=== PATIENT | male | born 1950 | race Caucasian/White ===

== ENCOUNTER 2016-06-08 | Outpatient (CLI) | payer MEDICARE, OTHER | END 2016-06-08 13:14 | disposition home or self-care (01) | DX: J45.998 Other asthma (principal) ==

== ENCOUNTER 2016-06-21 08:10 | Outpatient (CLI) | payer MEDICARE, OTHER | END 2016-06-21 08:11 | disposition home or self-care (01) | DX: Z00.00 Encounter for general adult medical examination without abnormal findings (principal); Z12.5 Encounter for screening for malignant neoplasm of prostate | CPT/HCPCS: 36415; 80061; G0103 ==

== ENCOUNTER 2016-08-13 12:00 | Day surgery (SDC) | payer MEDICARE, OTHER ==
[2016-08-13] MEDS ORDERED: LACTATED RINGERS 1,000 ML IV ONE (12:27)
[2016-08-13] MEDS ORDERED: MIDAZOLAM 2 MG/2 ML VIAL IVP ONE (15:00)
[2016-08-13] MEDS ORDERED: fentaNYL 250 MCG/5 ML VIAL IVP ONE (15:00)
== END 2016-08-13 12:01 | disposition home or self-care (01) ==
PROC: 0DJD8ZZ Inspection of Lower Intestinal Tract, Via Natural or Artificial Opening Endoscopic (ICD-10-PCS; principal; 2016-08-13 13:45)
DX: Z12.11 Encounter for screening for malignant neoplasm of colon (principal); K64.8 Other hemorrhoids; Z86.010 Personal history of colon polyps; Z87.891 Personal history of nicotine dependence; Z80.42 Family history of malignant neoplasm of prostate
CPT/HCPCS: G0105; J3010; J7120

== ENCOUNTER 2016-12-24 10:37 | Outpatient (CLI) | payer MEDICARE, OTHER | END 2016-12-24 10:38 | disposition home or self-care (01) | LOC: LAB.WCP 10:37 | PROVIDERS: ATTEND Family Medicine | DX: Z00.00 Encounter for general adult medical examination without abnormal findings (principal) | CPT/HCPCS: 36415; 86803 ==

== ENCOUNTER 2020-03-07 17:29 | Outpatient (CLI) | payer MEDICARE, OTHER | END 2020-03-07 17:30 | disposition home or self-care (01) | LOC: COV 17:29 | PROVIDERS: ATTEND Family Medicine | DX: Z20.828 Contact with and (suspected) exposure to other viral communicable diseases (principal) ==

== ENCOUNTER 2023-02-06 16:53 | Emergency (ER) | payer MEDICARE, OTHER ==
[2023-02-06 17:14] VITALS: BP 143/71; O2SAT 98
[2023-02-06 17:53] LABS: BASOPHILS % (AUTO) 0.2 %; EOSINOPHILS # (AUTO) 0.1 10^3/uL (0.0-0.7); EOSINOPHILS % (AUTO) 0.9 %; HCT - HEMATOCRIT 44.9 % (42.0-52.0); HGB - HEMOGLOBIN 15.3 g/dL (14.0-18.0); LYMPHOCYTES # (AUTO) 1.6 10^3/uL (1.5-3.5); LYMPHOCYTES % (AUTO) 16.8 %; MEAN CORPUSCULAR HEMOGLOBIN 31.5 pg (27.0-31.0); MEAN CORPUSCULAR HGB CONC 34.1 g/dL (32.0-36.0); MEAN CORPUSCULAR VOLUME 92.6 fL (80.0-94.0); MEAN PLATELET VOLUME 8.6 fL (7.4-11.4); MONOCYTES # (AUTO) 0.5 10^3/uL (0.0-1.0); MONOCYTES % (AUTO) 5.5 %; NEUTROPHILS # (AUTO) 7.4 10^3/uL (1.5-6.6); NEUTROPHILS % (AUTO) 76.4 %; PLT - PLATELET COUNT 208 10^3/uL (130-450); RED BLOOD COUNT 4.85 10^6/uL (4.70-6.10); RED CELL DISTRIBUTION WIDTH 11.8 % (12.0-15.0); WHITE BLOOD COUNT 9.7 x10^3/uL (4.8-10.8)
[2023-02-06 18:11] LABS: ALBUMIN 4.4 g/dL (3.2-5.5); ALBUMIN/GLOBULIN RATIO 1.8 (1.0-2.2); BILIRUBIN,TOTAL 1.3 mg/dL (0.2-1.0); POTASSIUM 4.5 mmol/L (3.5-4.5); TOTAL PROTEIN 6.8 g/dL (6.4-8.9)
[2023-02-06] MEDS ORDERED: LIDOCAINE-MPF 2% 6 ML in SODIUM CHLORIDE 0.9% 50 ML IV STA (19:02)
[2023-02-06] MEDS ORDERED: KETOROLAC 30 MG/ML VIAL IVP STA (19:02)
--- NOTE | 2023-02-06 19:05 | ED Physician Documentation ---
PD HPI ABD PAIN - Stated complaint Stated Complaint: ABD PX - Chief complaint Chief Complaint: Abd Pain - History obtained from History obtained from: Patient, Family - History of Present Illness Timing - onset: Today Timing - duration: Days (1) Pain level max: 8 Pain level now: 8 Quality: Aching, Sharp, Pain Location: Other (Left flank) Associated symptoms: No: Fever, Nausea, Vomiting, Hematemesis, Diarrhea, Constipation, Melena, Hematochezia, Dysuria, Hematuria - Additional information Additional information: Patient is a 72-year-old male who presents to the emergency department with left flank pain. Onset today. History of kidney stones and states that this feels similar. Has never had to have a stone removed. No history of stents. No nausea or vomiting. No diarrhea. No constipation. No blood in the urine. No dysuria. Review of Systems Constitutional: denies: Fever, Chills Nose: denies: Rhinorrhea / runny nose, Congestion Respiratory: denies: Cough GI: denies: Nausea, Vomiting, Diarrhea Skin: denies: Rash Musculoskeletal: denies: Neck pain, Back pain Neurologic: denies: Headache PD PAST MEDICAL HISTORY - Past Medical History Past Medical History: Yes Cardiovascular: None Respiratory: None Endocrine/Autoimmune: None GI: None : None, Kidney stones HEENT: None Psych: None Musculoskeletal: None, Other Derm: None - Past Surgical History Past Surgical History: No - Present Medications Home Medications: Ambulatory Orders Medication Instructions Recorded Confirmed Loratadine [Claritin] 10 mg PO ONCE 10/04/14 08/13/16 Aspirin 81 mg PO DAILY 08/10/16 08/10/16 Ibuprofen [Motrin] 800 mg PO Q8H PRN #30 tablet 02/06/23 Ondansetron Odt [Zofran] 4 mg TL Q6H PRN #10 tablet 02/06/23 Oxycodone HCl/Acetaminophen 1 - 2 each PO Q6H PRN #14 tablet 02/06/23 [Percocet 5-325 mg Tablet] MDD 6 tabs Tamsulosin [Flomax] 0.4 mg PO DAILY #14 cap 02/06/23 - Allergies Allergies/Adverse Reactions: Allergies Allergy/AdvReac Type Severity Reaction Status Date / Time No Known Drug Allergies Allergy Verified 02/06/23 17:13 - Social History Does the pt smoke?: No Smoking Status: Current some day smoker Does the pt drink ETOH?: Yes Does the pt have substance abuse?: Yes - Immunizations Immunizations are current?: Yes - POLST Patient has POLST: No PD ED PE NORMAL - Vitals Vital signs reviewed: Yes - General General: Alert and oriented X 3, No acute distress - HEENT HEENT: Moist mucous membranes - Neck Neck: Supple, no meningeal sign - Cardiac Cardiac: RRR, Strong equal pulses - Respiratory Respiratory: No respiratory distress, Clear bilaterally - Abdomen Abdomen: Soft, Non distended, Other (Mild tender to palpation left lower quadrant. No peritoneal signs.) - Back Back: Other (Mild left CVA tenderness) - Derm Derm: Warm and dry - Neuro Neuro: Alert and oriented X 3 Results - Vitals Vitals: Vital Signs - 24 hr 02/06/23 17:05 Temperature 37.1 C Heart Rate 59 L Respiratory 17 Rate Blood Pressure 143/71 H O2 Saturation 98 Oxygen O2 Source Room air - Labs Labs: Laboratory Tests 02/06/23 02/06/23 02/06/23 17:00 17:47 17:47 WBC 9.7 RBC 4.85 Hgb 15.3 Hct 44.9 MCV 92.6 MCH 31.5 H MCHC 34.1 RDW 11.8 L Plt Count 208 MPV 8.6 Neut # (Auto) 7.4 H Lymph # (Auto) 1.6 [place] # (Auto) 0.5 Eos # (Auto) 0.1 Baso # (Auto) 0.0 Absolute Nucleated RBC 0.00 Nucleated RBC % 0.0 Sodium 136 Potassium 4.5 Chloride 101 Carbon Dioxide 28 Anion Gap 7.0 BUN 13 Creatinine 1.0 Estimated GFR (MDRD) 73 L Glucose 107 H Calcium 10.0 Total Bilirubin 1.3 H AST 20 ALT 12 Alkaline Phosphatase 64 Total Protein 6.8 Albumin 4.4 Globulin 2.4 Albumin/Globulin Ratio 1.8 Lipase 37 Urine Color YELLOW Urine Clarity HAZY Urine pH 6.0 Ur Specific [place] 1.025 Urine Protein 100 H Urine Glucose (UA) NEGATIVE Urine Ketones 15 H Urine Occult Blood LARGE H Urine Nitrite NEGATIVE Urine Bilirubin NEGATIVE Urine Urobilinogen 0.2 (NORMAL) Ur Leukocyte Esterase NEGATIVE Urine RBC TNTC H Urine WBC 0-3 Ur Squamous Epith Cells RARE Squamous Urine Bacteria None Seen Ur Microscopic Review INDICATED Urine Culture Comments NOT INDICATED - Rads (name of study) CT abdomen pelvis Relevant Findings:: Final report received, See rad report PD Medical Decision Making - ED course Complexity details: reviewed results, re-evaluated patient, considered differential, d/w patient ED course: 72-year-old male presents to the emergency department left flank pain, consistent with ureteral stone. Given IV Toradol and IV lidocaine. Pain resolved. CT scan does show a 7 mm proximal ureteral stone. No evidence of infection. No vomiting. Will prescribe pain medication for home. We will have him follow-up with urology for further care. No indication for admission at this time. No evidence of sepsis. Patient counseled regarding signs and symptoms for which I believe and urgent re-evaluation would be necessary. Patient with good understanding of and agreement to plan and is comfortable going home at this time This document was made in part using voice recognition software. While efforts are made to proofread this document, sound alike and grammatical errors may occur. Departure - Departure Disposition: 01 Home, Self Care Clinical Impression: Renal colic on left side Condition: Good Instructions: ED Stone Renal W Colic Follow-Up: DERICK SIMON ARNP [Primary Care Provider] - As Needed Bobby Mendoza MD [Provider Admit Priv/Credential] - Within 1 week Prescriptions: Tamsulosin [Flomax] 0.4 mg PO DAILY #14 cap Ibuprofen [Motrin] 800 mg PO Q8H PRN #30 tablet PRN Reason: PAIN &/OR FEVER Oxycodone HCl/Acetaminophen [Percocet 5-325 mg Tablet] 1 - 2 each PO Q6H PRN #14 tablet MDD 6 tabs PRN Reason: pain Ondansetron Odt [Zofran] 4 mg TL Q6H PRN #10 tablet PRN Reason: Nausea / Vomiting Comments: Your prescriptions were sent to [facility] in [place]. You have a 7 mm left ureteral stone, this is in the proximal ureter. This is unlikely to pass on its own. Please contact Dr. Mendoza's office in the morning for a follow-up appointment. Please return if you worsen including uncontrolled pain, fevers or other new or worrisome symptoms. I am prescribing a short course of narcotic pain medication for you. These are potentially dangerous and addictive medications that should be used carefully. These medications may constipate you. Take an uery-yxl-iatqbvf stool softener (docusate) twice daily with plenty of water while taking these medications. If you go 24 hours without a bowel movement, take pymv-opf-pktzxlq miralax, per package instructions. Do not drink or drive while taking these medications. If you received narcotic or sedating medications while in the emergency department, do not drive for 24 hours. Store this medication in a safe, secure place and out of reach of children. It is a violation of federal law to give or sell this medication to another person or to use in a manner other than prescribed. The ED will not refill narcotic prescriptions, including prescriptions lost or stolen. To dispose of unwanted medications: 1. [facility] at [address] in [place] has a medication drop box. They accept prescription medications (in pill form) Saturday through Saturday 9:00 a.m. to 5:00 p.m. 2. The [facility] [place] [employer] accepts prescription medications (in pill form only) for disposal year round. Call for more information. 3. Contact the [facility] for the next COUNTS INCLUDE 234 BEDS AT THE [facility] sponsored prescription drug collection event. , [phone], or [phone]; PROCEDURE: ABDOMEN/PELVIS WO INDICATIONS: L flank pain, h/o renal stones TECHNIQUE: A CT scan of the abdomen and pelvis was performed without the use of intravenous contrast. Images were recorded and evaluated at appropriate window settings. Reformats: coronal and sagittal. For radiation dose reduction, the following was used: automated exposure control, adjustment of mA and/or kV according to patient size. COMPARISON: CT abdomen pelvis 10/11/2021 FINDINGS: Image quality: Excellent. Lung bases and heart: Unremarkable. Liver: Unchanged hepatic low-attenuation foci most suggestive of cysts. Gallbladder and biliary tree: Unremarkable Spleen: No splenomegaly. Pancreas: No pancreatic ductal dilation. Adrenals: No adrenal nodule. Kidneys and ureters: There is prominent left perinephric stranding as well as mild to moderate hydronephrosis. Punctate superior pole calcification is present. In addition, 5 mm inferior pole calcification, Hounsfield units 848 is present. There is a proximal ureteral calcification immediately distal to the ureteropelvic junction measuring 7 mm. Periureteral stranding is present. Right kidney is unremarkable. Bowel and peritoneum: No bowel distension. No pathologic free fluid. Scattered diverticula are present without inflammatory change. Lymph nodes: No central or retroperitoneal adenopathy. Vessels: No infrarenal aortic aneurysm. PELVIS Reproductive organs: Unremarkable. Bladder: No wall thickness, accounting for underdistention. Pelvic lymph nodes: No pelvic adenopathy by size criteria. Bones: No aggressive osseous abnormality. Other: No significant ventral or inguinal hernia. IMPRESSION: Left hydronephrosis and proximal hydroureter secondary to 7 mm proximal ureteral stone. Nonobstructing left renal calculi. Diverticulosis. Forms: PCP List Discharge Date/Time: 02/06/23 20:47
[2023-02-06 19:15] LABS: BILIRUBIN,URINE NEGATIVE (NEGATIVE); GLUCOSE, URINE (UA) NEGATIVE (NEGATIVE); KETONES,URINE (UA) 15 mg/dL (NEGATIVE); LEUKOCYTE ESTERASE, URINE NEGATIVE (NEGATIVE); NITRITE,URINE NEGATIVE (NEGATIVE); OCCULT BLOOD,URINE LARGE (NEGATIVE); PROTEIN,URINE 100 mg/dL (NEGATIVE); UROBILINOGEN,URINE 0.2 (NORMAL) E.U./dL (NORMAL)
[2023-02-06 19:16] LABS: CLARITY,URINE HAZY (CLEAR)
[2023-02-06 19:37] LABS: BACTERIA,URINE None Seen /HPF (None Seen); RBC,URINE TNTC /HPF (0-5); SQUAMOUS EPITHELIAL CELL,UR RARE Squamous (<= Few); WBC,URINE 0-3 /HPF (0-3)
[2023-02-06] MEDS ORDERED: LIDOCAINE-MPF 2% 5 ML VIAL ONE (19:58)
--- NOTE | 2023-02-06 20:06 | CT Report ---
PROCEDURE: ABDOMEN/PELVIS WO INDICATIONS: L flank pain, h/o renal stones TECHNIQUE: A CT scan of the abdomen and pelvis was performed without the use of intravenous contrast. Images we re recorded and evaluated at appropriate window settings. Reformats: coronal and sagittal. For radiat ion dose reduction, the following was used: automated exposure control, adjustment of mA and/or kV ac cording to patient size. COMPARISON: CT abdomen pelvis 10/11/2021 FINDINGS: Image quality: Excellent. Lung bases and heart: Unremarkable. Liver: Unchanged hepatic low-attenuation foci most suggestive of cysts. Gallbladder and biliary tree: Unremarkable Spleen: No splenomegaly. Pancreas: No pancreatic ductal dilation. Adrenals: No adrenal nodule. Kidneys and ureters: There is prominent left perinephric stranding as well as mild to moderate hydron ephrosis. Punctate superior pole calcification is present. In addition, 5 mm inferior pole calcificat ion, Hounsfield units 848 is present. There is a proximal ureteral calcification immediately distal t o the ureteropelvic junction measuring 7 mm. Periureteral stranding is present. Right kidney is unrem arkable. Bowel and peritoneum: No bowel distension. No pathologic free fluid. Scattered diverticula are presen t without inflammatory change. Lymph nodes: No central or retroperitoneal adenopathy. Vessels: No infrarenal aortic aneurysm. PELVIS Reproductive organs: Unremarkable. Bladder: No wall thickness, accounting for underdistention. Pelvic lymph nodes: No pelvic adenopathy by size criteria. Bones: No aggressive osseous abnormality. Other: No significant ventral or inguinal hernia. IMPRESSION: Left hydronephrosis and proximal hydroureter secondary to 7 mm proximal ureteral stone. Nonobstructing left renal calculi. Diverticulosis. Reviewed by: Aleida Pham MD on 02/06/2023 8:05 PM PDT Approved by: Aleida Pham MD on 02/06/2023 8:05 PM PDT Station ID: [id number]
== END 2023-02-06 20:47 | disposition home or self-care (01) ==
LOC: ED 16:53
DX: N23 Unspecified renal colic (principal); F17.200 Nicotine dependence, unspecified, uncomplicated; Z79.899 Other long term (current) drug therapy; Z79.82 Long term (current) use of aspirin
CPT/HCPCS: 36415; 74176; 80053; 81001; 83690; 85025; 99283; 99284; J7040; 81003; 87086

== ENCOUNTER 2023-03-06 09:37 | Outpatient (CLI) | payer MEDICARE, OTHER ==
--- NOTE | 2023-03-06 13:06 | XRAY Report ---
PROCEDURE: Abdomen 1 View X-Ray INDICATIONS: KIDNEY STONE TECHNIQUE: One view of the abdomen acquired. COMPARISON: CT KUB 02/06/2023 FINDINGS: Surgical changes and devices: None. Bowel: Bowel gas pattern is normal. Soft tissues: There are 3 large and one small calcifications, all of which project over the left lowe r pole renal shadow. The largest is smooth and ovoid measuring 1.0 cm, probably corresponding to the previous UPJ stone. The others correspond to retained left lower pole stones on CT. No right renal stones are seen. Visua lized solid organ contours appear normal in size. Moderate vascular calcification is present. Bones: No suspicious bony lesions. Multilevel endplate degeneration in the lumbar spine. IMPRESSION: 1. Previous ureteropelvic junction stone on the left has likely traveled retrograde and is in the low er pole intrarenal collecting system. 2. Other nonobstructing left lower pole intrarenal calculi are seen. Reviewed by: Toya Corley MD on 03/06/2023 1:05 PM PST Approved by: Toya Corley MD on 03/06/2023 1:05 PM PST Station ID: [id number]
== END 2023-03-06 09:38 | disposition home or self-care (01) ==
LOC: DI 09:37
PROVIDERS: ATTEND Urology
DX: N20.0 Calculus of kidney (principal)

== ENCOUNTER 2023-03-11 10:26 | Day surgery (SDC) | payer MEDICARE, OTHER ==
[2023-03-11] MEDS ORDERED: ceFAZolin 2 GM VIAL ONE (10:31)
[2023-03-11] MEDS ORDERED: LACTATED RINGERS 1,000 ML IV ONE ×2 (10:46→12:57)
[2023-03-11] MEDS ORDERED: PROPOFOL 200 MG/20 ML VIAL IVP ONE (11:18)
[2023-03-11] MEDS ORDERED: fentaNYL 100 MCG/2 ML VIAL ONE (11:18)
[2023-03-11] MEDS ORDERED: NALOXONE 0.4 MG/ML VIAL IVP PRN (11:32)
[2023-03-11] MEDS ORDERED: ATROPINE ABBOJECT 1 MG/10 ML SYRINGE IVP PRN (11:32)
[2023-03-11] MEDS ORDERED: fentaNYL 100 MCG/2 ML VIAL IVP PRN (11:32)
[2023-03-11] MEDS ORDERED: ONDANSETRON 4 MG/2 ML VIAL IVP PRN ×2 (11:32→12:58)
[2023-03-11] MEDS ORDERED: MORPHINE 2 MG/ML CARPUJECT IVP PRN (11:32)
[2023-03-11] MEDS ORDERED: HYDROmorphone 0.5 MG/0.5 ML SYRINGE IVP PRN (11:32)
--- NOTE | 2023-03-11 11:32 | ANESTHESIA ---
Pre-Anesthesia VS, & Labs - Diagnosis left kidney stone - Procedure left ESWL Vital Signs: Temp Pulse Resp BP Pulse Ox O2 Flow Rate 36.0 C L 67 14 142/76 H 98 03/11/23 10:46 03/11/23 10:46 03/11/23 10:46 03/11/23 10:46 03/11/23 10:46 Height: 6 ft Weight (kg): 76.7 kg Body Mass Index: 22.9 BMI Classification: Normal - NPO >8 hours Home Medications and Allergies Allergies/Adverse Reactions: Allergies Allergy/AdvReac Type Severity Reaction Status Date / Time No Known Drug Allergies Allergy Verified 03/11/23 10:56 Anes History & Medical History - Anesthetic History Anesthesia Complications: reports: No previous complications - Medical History Cardiovascular: reports: None Pulmonary: reports: None Gastrointestinal: reports: None Urinary: reports: Kidney stones Musculoskeletal: reports: None, Other Endocrine/Autoimmune: reports: None Blood Disorders: reports: None Skin: reports: None Smoking Status: Never smoker Psychosocial: reports: No issues indicated History of Cancer?: No - Surgical History Orthopedic: reports: Other (juan foot) Exam General: Alert, Oriented x3, Cooperative, No acute distress Dental: WNL Mouth Openin Fingerbreadth Neck Mobility: Normal Mallampati classification: II Thyromental Distance: 4-6 cm Mental/Cognitive Status: Alert/Oriented X3, Normal for patient Plan Anesthesia Type: General, Total IV Consent for Procedure(s) Verified and Reviewed: Yes Code Status: Attempt Resuscitation ASA classification: 1-Healthy patient Is this case an emergency?: No
[2023-03-11] MEDS ORDERED: MIDAZOLAM 2 MG/2 ML VIAL ONE (11:52)
[2023-03-11] MEDS ORDERED: LACTATED RINGERS 1,000 ML IV SCH (12:00)
[2023-03-11] MEDS ORDERED: HYDROcod/ACETAM 5/325 MG TABLET PO PRN (12:58)
--- NOTE | 2023-03-11 13:04 | Discharge Plan ---
Discharge Plan Problem Reviewed?: Yes Disposition: Home, Self Care Condition: Good Prescriptions: Docusate Sodium 100Mg Capsule [Colace 100Mg Capsule] 100 mg PO DAILY #7 cap HYDROcod/ACETAM 5/325 [[place] 5/325] 1 tab PO Q4H PRN #10 tablet PRN Reason: Pain Diet: Regular Activity Restrictions: No Restrictions Shower Restrictions: No Driving Restrictions: No Instruction Topics: Lithotripsy Shock Wave Additional Instructions or Follow Up instructions: You will be contacted for follow-up in [address] Mendoza No Smoking: If you smoke, Please STOP! Call for help. Follow-up with: DERICK SIMON ARNP [Primary Care Provider] - Bobby Mendoza MD [Provider Admit Priv/Credential] -
--- NOTE | 2023-03-11 13:08 | OPERATIVE REPORT ---
Operative Report - General Procedure Date: 03/11/23 Planned Procedure: Left extracorporeal shock wave lithotripsy Pre-Op Diagnosis: Left Kidney stones Procedure Performed: Left extracorporeal shock wave lithotripsy Post Op Diagnosis: Left Kidney stones - Procedure Note Primary Surgeon: Reji Anesthesia Provider: CLINTON Gilmore Indications: Left kidney stones Findings: Two left renal stones, about 1cm UPJ stone, 7mm lower pole stone. Good dissolution Complications: none - Other Other Information/Narrative: After informed consent was obtained the patient was brought to the OR and laid in the supine position. The patient was then anesthetized per anesthesia protocols and draped in usual fashion. The lithotripter was placed against the patient's left side and using fluoroscopy we could visualize 2 stones in his left kidney. A larger approximately 1 cm radiopaque stone near the left UPJ along with a smaller 7 mm lower pole left renal stone. A timeout was performed reconfirming the patient, procedure, and laterality. T he shockwaves were started at a rate of 1 Hz for the first 500 shocks delivered to the larger stone. We then gave a total of 1700 shocks total to the stone with good dissolution. We then moved to the smaller stone where we performed another 800 shocks. This stone also had good dissolution. This included the procedure the patient tolerated the procedure well. He was brought to PACU without further incident. He will follow-up in 6 weeks time.
[2023-03-11 13:50] VITALS: BP 115/67; O2SAT 98
--- NOTE | 2023-03-11 13:51 | ANESTHESIA POST OP EVALUATION ---
Anesthesia Post Eval - Post Anesthesia Eval Vitals: Last Vital Signs Temp 36.1 C L 03/11/23 13:44 Pulse 65 03/11/23 13:44 Resp 16 03/11/23 13:44 BP 115/67 03/11/23 13:44 Pulse Ox 98 03/11/23 13:44 O2 Flow Rate CV Function Including HR & BP: Stable Pain Control: Satisfactory Nausea & Vomiting: Negative Mental Status: Baseline Respiratory Status: Airway Patent Hydration Status: Satisfactory Anesthesia Complications: None
== END 2023-03-11 10:27 | disposition home or self-care (01) ==
LOC: SDS 10:26
PROVIDERS: ATTEND Urology
DX: N20.0 Calculus of kidney (principal)
CPT/HCPCS: 50590; J7120

== ENCOUNTER 2023-04-25 08:00 | Outpatient (CLI) | payer MEDICARE, OTHER ==
--- NOTE | 2023-04-26 08:40 | XRAY Report ---
PROCEDURE: Abdomen 1 View (KUB) INDICATIONS: KIDNEY STONES TECHNIQUE: One view abdomen COMPARISON: X-ray abdomen, 03/06/2023. CT of abdomen and pelvis, 02/06/2023. FINDINGS: There are at least 2 stones in the left renal area measuring 5 mm and 7 mm. The right renal contour is partially obscured by stool content. Calcific densities in the right pelvis are most like ly phleboliths. There is a large amount of stool in colon. IMPRESSION: 1. At least 2 renal stones in left kidney. 2. A large amount of stool in colon. Reviewed by: Elvin Ag MD on 04/26/2023 8:39 AM PST Approved by: Elvin Ag MD on 04/26/2023 8:39 AM PST Station ID: [id number]
== END 2023-04-25 23:59 | disposition home or self-care (01) ==
LOC: DI.WOS 08:00
PROVIDERS: ATTEND Urology
DX: N20.0 Calculus of kidney (principal)

== ENCOUNTER 2023-09-24 11:59 | Emergency (ER) | payer MEDICARE, OTHER ==
[2023-09-24 13:16] LABS: BASOPHILS % (AUTO) 0.4 %; EOSINOPHILS # (AUTO) 0.2 10^3/uL (0.0-0.7); EOSINOPHILS % (AUTO) 3.7 %; HCT - HEMATOCRIT 48.2 % (42.0-52.0); HGB - HEMOGLOBIN 16.4 g/dL (14.0-18.0); LYMPHOCYTES # (AUTO) 1.8 10^3/uL (1.5-3.5); LYMPHOCYTES % (AUTO) 37.9 %; MEAN CORPUSCULAR HEMOGLOBIN 32.2 pg (27.0-31.0); MEAN CORPUSCULAR VOLUME 94.7 fL (80.0-94.0); MEAN PLATELET VOLUME 9.3 fL (7.4-11.4); MONOCYTES # (AUTO) 0.4 10^3/uL (0.0-1.0); MONOCYTES % (AUTO) 8.5 %; NEUTROPHILS # (AUTO) 2.4 10^3/uL (1.5-6.6); NEUTROPHILS % (AUTO) 49.3 %; PLT - PLATELET COUNT 222 10^3/uL (130-450); RED BLOOD COUNT 5.09 10^6/uL (4.70-6.10); RED CELL DISTRIBUTION WIDTH 11.8 % (12.0-15.0); WHITE BLOOD COUNT 4.9 x10^3/uL (4.8-10.8)
[2023-09-24 13:29] LABS: ALBUMIN 4.6 g/dL (3.2-5.5); ALBUMIN/GLOBULIN RATIO 1.9 (1.0-2.2); BILIRUBIN,TOTAL 1.6 mg/dL (0.2-1.0); CALCIUM 10.5 mg/dL (8.5-10.3); CREATININE 0.9 mg/dL (0.6-1.3); MAGNESIUM 1.8 mg/dL (1.7-2.3); POTASSIUM 4.1 mmol/L (3.5-4.5)
[2023-09-24] MEDS ORDERED: iohexoL-300 100 ML VIAL ONE (13:37)
[2023-09-24] MEDS: iohexoL-300 100 ML VIAL IVP ONE (13:54)
[2023-09-24 14:11] VITALS: O2SAT 99
--- NOTE | 2023-09-24 14:15 | CT Report ---
PROCEDURE: Head WO INDICATIONS: FOGGY HEADED TECHNIQUE: Noncontrast 4.5 mm thick angled axial sections acquired from the foramen magnum to the vertex. For r adiation dose reduction, the following was used: automated exposure control, adjustment of mA and/or kV according to patient size. COMPARISON: None. FINDINGS: Image quality: Excellent. CSF spaces: Basal cisterns are patent. No extra-axial fluid collections. Ventricles are normal in size and shape. Brain: No midline shift. No intracranial masses or hemorrhage. Garcia-white matter interface is norm al. Skull and face: Calvarium and visualized facial bones are intact, without suspicious lesions. Sinuses: Minimal patchy bilateral ethmoid disease. IMPRESSION: No acute intracranial pathology. Minimal chronic sinusitis. Reviewed by: Jeffrey Macias MD on 09/24/2023 2:13 PM PDT Approved by: Jeffrey Macias MD on 09/24/2023 2:13 PM PDT Station ID: [id number]
--- NOTE | 2023-09-24 14:17 | CT Report ---
PROCEDURE: Angio Head/Neck INDICATIONS: FOGGY HEADED TECHNIQUE: After the administration of intravenous contrast, 1 mm thick sections acquired from the aortic arch t hrough the [place] of [place]. 3-dimensional qaqmfkc-tjiyxtzyl-guxpecvopc (MIP) and/or volume renderin g reformats were acquired of the central intracranial vasculature and neck separately. For radiation dose reduction, the following was used: automated exposure control, adjustment of mA and/or kV acco rding to patient size. CONTRAST: 80ML [id number] COMPARISON: CT head from today. FINDINGS: Image quality: Diagnostic. HEAD CT: CSF Spaces: Basal cisterns are patent. No extra-axial fluid collections. Ventricles are normal in size and shape. Brain: No significant abnormality is seen for scanning technique. Skull and face: Calvarium and visualized facial bones appear intact, without suspicious lesions. Sinuses: Visualized sinuses and mastoids are clear. HEAD CT ANGIOGRAPHY: Anterior circulation: Intracranial internal carotid arteries are normal in size and flow. The flow within the paired anterior cerebral arteries is normal and symmetric. The flow within the middle cer ebral arteries is normal and symmetric. The anterior communicating artery is seen. No aneurysms are seen. Posterior circulation: Visualized portions of the vertebral arteries demonstrate normal caliber, and join to form a normal appearing basilar artery. Flow within the posterior cerebral arteries is norm al and symmetric. No aneurysms are seen. NECK CT ANGIOGRAPHY: Carotid system: The great vessels demonstrate a conventional anatomy as they arise from the aortic a rch. The origins of the common carotid arteries appear patent. The common carotid arteries demonstr ate normal caliber and courses. The bifurcation regions are both widely patent. The internal caroti d arteries demonstrate normal calibers and courses. Posterior circulation: The origins of the vertebral arteries both appear widely patent. The more miles perior extracranial portions of both vertebral arteries also demonstrate normal courses and calibers. They join to form a normal appearing basilar artery. Soft tissues: Visualized neck soft tissues demonstrate no suspicious abnormalities. Bones: No suspicious bony lesions. Visualized cervical spine appears normally aligned. IMPRESSION: No significant intracranial arterial abnormality is seen. No significant abnormality is seen within the arteries of the neck. The estimate of stenosis included in the report of the imaging study was calculated using the NASCET method Reviewed by: Jeffrey Macias MD on 09/24/2023 2:16 PM PDT Approved by: Jeffrey Macias MD on 09/24/2023 2:16 PM PDT Station ID: [id number]
[2023-09-24 14:24] LABS: THYROID STIMULATING HORMONE 0.96 uIU/mL (0.34-5.60)
--- NOTE | 2023-09-24 14:42 | ED Physician Documentation ---
History of Present Illness - Stated complaint Stated Complaint: FOGGY HEAD - Chief complaint Chief Complaint: Neuro - Additonal information Additional information: See paper chart note PD PAST MEDICAL HISTORY - Past Medical History Cardiovascular: None Respiratory: None Endocrine/Autoimmune: None GI: None : Kidney stones HEENT: None Psych: None Musculoskeletal: None, Other Derm: None - Past Surgical History Past Surgical History: No Ortho: Other (juan foot) - Present Medications Home Medications: Ambulatory Orders Medication Instructions Recorded Confirmed No Known Home Medications 09/24/23 09/24/23 - Allergies Allergies/Adverse Reactions: Allergies Allergy/AdvReac Type Severity Reaction Status Date / Time No Known Drug Allergies Allergy Verified 09/24/23 13:21 - Social History Does the pt smoke?: No Smoking Status: Never smoker Does the pt drink ETOH?: Yes Does the pt have substance abuse?: Yes - Immunizations Immunizations are current?: Yes - POLST Patient has POLST: No PD ED PE NORMAL - Vitals Vital signs reviewed: Yes (See paper chart for assessment) Results - Vitals Vitals: Vital Signs - 24 hr 09/24/23 09/24/23 09/24/23 13:21 13:23 13:58 Temperature 36.7 C 36.7 C Heart Rate 77 72 61 Respiratory 17 17 14 Rate Blood Pressure 153/82 H 124/87 H 124/88 H O2 Saturation 98 97 99 09/24/23 14:57 Temperature 36.5 C Heart Rate 56 L Respiratory 15 Rate Blood Pressure 129/87 H O2 Saturation 99 Oxygen O2 Source Room air - Labs Labs: Laboratory Tests 09/24/23 09/24/23 12:55 12:55 WBC 4.9 RBC 5.09 Hgb 16.4 Hct 48.2 MCV 94.7 H MCH 32.2 H MCHC 34.0 RDW 11.8 L Plt Count 222 MPV 9.3 Neut # (Auto) 2.4 Lymph # (Auto) 1.8 Harrison # (Auto) 0.4 Eos # (Auto) 0.2 Baso # (Auto) 0.0 Absolute Nucleated RBC 0.00 Nucleated RBC % 0.0 Sodium 138 Potassium 4.1 Chloride 105 Carbon Dioxide 28 Anion Gap 5.0 L BUN 17 Creatinine 0.9 Estimated GFR (MDRD) 83 L Glucose 96 Calcium 10.5 H Magnesium 1.8 Total Bilirubin 1.6 H AST 22 ALT 14 Alkaline Phosphatase 74 Total Protein 7.0 Albumin 4.6 Globulin 2.4 Albumin/Globulin Ratio 1.9 Lipase 68 TSH 0.96 - Rads (name of study) CT angio head and neck Relevant Findings:: Final report received, EMP independent interpretation of test, Other (No significant arterial stenosis or other acute abnormalities.) CT head without Relevant Findings:: Final report received, EMP independent interpretation of test, Other (No acute intracranial hemorrhages or abnormalities.) PD Medical Decision Making - ED course ED course: See paper charting for physical exam and history and physical. Patient has been experiencing foggy headedness now for about a month after a second episode of transient global amnesia. He was recommended to come into the emergency department for head CT. Head CT and CT angio are complete for further evaluation and no acute abnormalities were seen. TSH was also found to be unremarkable and no significant lab abnormalities aside from slightly elevated bilirubin and calcium. Patient was informed of these findings and told to follow-up with his primary care provider for further intervention, workup, and possible more specialty imaging. Return precautions given patient is safe for discharge at this time. Departure - Departure Disposition: 01 Home, Self Care Clinical Impression: Transient global amnesia, Brain fog Instructions: Headaches Migraine and Tension Comments: Thank you for trusting us with your care. Labs have been complete and we are not seeing any significant abnormalities that would require hospitalization. Your calcium is minimally elevated at 10.5 normal cutoff range is 10.3 and your total bilirubin is also slightly elevated at 1.6, normal range is 1.0. I would continue to follow-up with your primary care provider attempted call their office again today to see if they are able to get you in with a quicker visit as you are seen in the emergency department. Your head CT and your CT angio was also normal as well as your TSH. He may benefit from a referral to neurology for further evaluation of this brain fog sensation that you are experiencing and this second episode of transient global amnesia. Please come back to the emergency department if you are having weakness on one side your body, nausea vomiting, or any other concerning emergent symptoms. Forms: PCP List Discharge Date/Time: 09/24/23 14:58
[2023-09-24 15:01] VITALS: BP 129/87
== END 2023-09-24 14:58 | disposition home or self-care (01) ==
LOC: ED 11:59
DX: G45.4 Transient global amnesia (principal)
CPT/HCPCS: 36415; 70450; 70496; 70498; 80053; 83690; 83735; 84443; 85025; 99284; Q9967